=== PATIENT | female | born 1940 | race Caucasian/White ===

== ENCOUNTER 2017-04-18 17:06 | Observation (INO) | payer OTHER ==
[~2017-04-18] VITALS: Ht 165.1 cm; Wt 88.9 kg
[~2017-04-18 17:06] MED LIST: ACTOS45 MG PO; AMBIEN5 M1 PO; ANTIVIRAL; ASPIR 8181 M1 PO; AVALIDE 150/1 TABLET PO; BABY ASPIRIN81 M1 PO; BACLOFEN20 MG PO; CALCIUM 600 +1 EAC2 PO; CIPRO500 MG PO; COZAAR50 MG PO; DURAGESIC50 MCG TD; EXCEDRIN MIGRA1 EAC3 PO; FEOSOL325 MG PO; FUROSEMIDE20 MG PO; GLUCOPHAGE500 MG PO; HUMULIN 70100 UNIT/1 SQ; LANTUS 10100 UNITS/ SC; LIPITOR20 MG PO; LIPITOR40 MG PO; LYRICA150 MG PO; NORVASC2.5 MG PO; NOVOLOG PE100 UNITS/ SC; OXYCODONE HCL10 MG PO; PERCOCET 5/31 TABLET PO; PRAVACHOL40 MG PO; TOPROL XL100 MG PO; TRAZODONE HCL50 MG PO; VENTOLIN HFA18 GM IH; VENTOLIN17 GM IH; VOLTAREN 1% GE100 GM TP; WOMEN'S DAILY1 EAC4 PO; XARELTO20 MG PO; ZETIA10 MG PO; ZOLOFT100 MG PO; ZOLOFT50 M1 PO
[2017-04-18 17:34] LABS: HEMATOCRIT 35.5 % (36.0-46.0); HEMOGLOBIN 11.4 G/DL (11.9-15.5); MCH 26.7 PG (29.0-34.0); MCHC 32.1 G/DL (30.0-36.0); MCV 83.1 FL (83-99); PLATELET COUNT 250 K/uL (156-360); RBC DIS.WIDTH-SD 45.2 % (39-53); RED BLOOD COUNT 4.27 M/uL (3.80-5.20); WHITE BLOOD COUNT 6.1 K/uL (4.1-10.2)
[2017-04-18 17:42] LABS: CHLORIDE 104 mEq/L (99-109); POTASSIUM 4.7 mEq/L (3.7-5.4); SODIUM 139 mEq/L (136-147)
[2017-04-18 17:43] LABS: GLUCOSE 332 mg/dL (70-99)
[2017-04-18 17:47] LABS: GFR ESTIMATE (CALCULATED) 57 mL/min/
[2017-04-18 17:48] LABS: UREA NITROGEN (BUN) 21 mg/dL (9-23)
[2017-04-18 17:55] LABS: TROP-I INTERPRETATION NEGATIVE; TROPONIN-I < 0.01 ng/mL (0.0-0.30)
[2017-04-18 20:12] VITALS: BP 212/81
[2017-04-18 20:23] LABS: ALBUMIN 3.6 g/dL (3.2-4.8)
[2017-04-18 20:25] LABS: TOTAL PROTEIN 6.5 g/dL (6.4-8.3)
[2017-04-18 20:27] LABS: TOTAL BILIRUBIN 0.2 mg/dL (0.0-1.0)
[2017-04-18 20:28] LABS: ALKALINE PHOSPHATASE 88 IU/L (3-129)
[2017-04-18 20:31] LABS: ALT (GPT) 11 IU/L (3-49); AST (GOT) 19 IU/L (2-34); DIRECT BILIRUBIN 0.1 mg/dL (0.0-0.3)
[2017-04-18 20:32] LABS: LIPASE 23 U/L (1.0-51.0)
[2017-04-18 20:40] VITALS: BP 168/73
[2017-04-19 00:05] VITALS: BP 178/74
[2017-04-19 00:15] LABS: TROP-I INTERPRETATION NEGATIVE; TROPONIN-I < 0.01 ng/mL (0.0-0.30)
[2017-04-19 04:16] VITALS: BP 135/64
[2017-04-19 05:49] LABS: HEMATOCRIT 33.1 % (36.0-46.0); HEMOGLOBIN 10.2 G/DL (11.9-15.5); MCH 26.2 PG (29.0-34.0); MCHC 30.8 G/DL (30.0-36.0); MCV 85.1 FL (83-99); PLATELET COUNT 237 K/uL (156-360); RBC DIS.WIDTH-CV 15.2 % (11.8-14.6); RED BLOOD COUNT 3.89 M/uL (3.80-5.20)
[2017-04-19 06:11] LABS: TROP-I INTERPRETATION NEGATIVE; TROPONIN-I < 0.01 ng/mL (0.0-0.30)
[2017-04-19 06:31] LABS: CHLORIDE 110 MEQ/L (99-109); CREATININE 0.9 MG/DL (0.6-1.3); GFR ESTIMATE (CALCULATED) > 59 mL/min/; GLUCOSE 212 mg/dL (70-99); POTASSIUM 4.4 MEQ/L (3.7-5.4); SODIUM 145 MEQ/L (136-147); UREA NITROGEN (BUN) 26 mg/dL (9-23)
[2017-04-19 07:32] VITALS: BP 159/70; BP 206/78
[2017-04-19 10:38] LABS: HEMOGLOBIN A1c (GLYCOHEMOGLOB) 7.6 % (Below 5.7)
== END 2017-04-19 12:27 | disposition home or self-care (01) ==
LOC: EME 17:06 → EDOF 18:45 → 5WEST 18:45 → EDOF 18:45 → ENRESERV 18:47 → 5WEST 19:59
PROVIDERS: Hospitalist
DX: R07.9 Chest pain, unspecified (principal); I65.29 Occlusion and stenosis of unspecified carotid artery; I10 Essential (primary) hypertension; E78.5 Hyperlipidemia, unspecified; E11.42 Type 2 diabetes mellitus with diabetic polyneuropathy; I25.10 Atherosclerotic heart disease of native coronary artery without angina pectoris; Z95.1 Presence of aortocoronary bypass graft; R42 Dizziness and giddiness; R61 Generalized hyperhidrosis; R06.02 Shortness of breath; M19.90 Unspecified osteoarthritis, unspecified site; F32.9 Major depressive disorder, single episode, unspecified; J44.9 Chronic obstructive pulmonary disease, unspecified; G89.29 Other chronic pain; Z96.653 Presence of artificial knee joint, bilateral; Z87.891 Personal history of nicotine dependence; Z82.0 Family history of epilepsy and other diseases of the nervous system; Z80.1 Family history of malignant neoplasm of trachea, bronchus and lung
CPT/HCPCS: 71046; 80048; 80076; 82948; 83036; 83690; 84484; 85027; 93005; 99281; 99285; G0378; J1644; J1815; J7030